=== PATIENT | female | born 1960 | race Caucasian/White ===

== ENCOUNTER 2018-01-10 08:20 | Emergency (ER) | payer OTHER ==
[~2018-01-10] VITALS: Ht 160 cm; Wt 59.0 kg
[2018-01-10 08:25] VITALS: BP_SYST 124
[2018-01-10] MEDS ORDERED: IBUPROFEN 800 MG TABLET PO ONE (09:15)
[2018-01-10] MEDS ORDERED: HYDROcodone/ACETAMIN 5-325 MG TAB (NORCO/ VICODIN) PO ONE (09:15)
[2018-01-10 09:23] VITALS: BP_SYST 117
== END 2018-01-10 09:23 | disposition home or self-care (01) ==
LOC: SED 08:20
DX: S20.219A Contusion of unspecified front wall of thorax, initial encounter (principal); V43.92XA Unspecified car occupant injured in collision with other type car in traffic accident, initial encounter; Y93.89 Activity, other specified; Y92.410 Unspecified street and highway as the place of occurrence of the external cause; Y99.8 Other external cause status
CPT/HCPCS: 71046-TC; 99284